=== PATIENT | female | born 1985 | race Caucasian/White ===

== ENCOUNTER 2022-02-08 12:29 | Outpatient (CLI) | payer BC, SELFPAY ==
[2022-02-08 15:22] LABS: Hepatitis B Surface Antigen* Negative (Negative)
[2022-02-08 15:33] LABS: HIV 1/2/P24 Combo Screen* Negative (Negative)
[2022-02-08 15:40] LABS: Hepatitis C Virus Antibody* Negative (Negative)
[2022-02-08 17:42] LABS: TSH With Reflex to FT4* 0.481 uIU/mL (0.270-4.200)
[2022-02-09 22:43] LABS: Rubella Antibody IgG 29.8 IU/mL
[2022-02-10 01:13] LABS: Rapid Plasma Reagin (RPR) Non Reactive (Non Reactive)
== END 2022-02-08 12:30 | disposition home or self-care (01) ==
PROVIDERS: Visit Provider Advanced Practice Midwife
DX: Z34.91 Encounter for supervision of normal pregnancy, unspecified, first trimester (principal); Z13.29 Encounter for screening for other suspected endocrine disorder
CPT/HCPCS: 76817; 84443; 86592; 86703; 86762; 86787; 86803; 86850; 86900; 86901; 87086; 87340

== ENCOUNTER 2022-03-16 09:48 | Outpatient (CLI) | payer BC, SELFPAY | END 2022-03-16 09:49 | disposition home or self-care (01) | LOC: NFLDREF 09:49 | PROVIDERS: Visit Provider Advanced Practice Midwife | DX: N39.0 Urinary tract infection, site not specified (principal) | CPT/HCPCS: 87086 ==

== ENCOUNTER 2022-04-13 16:00 | Outpatient (CLI) | payer BC, SELFPAY ==
[2022-04-16 10:41] LABS: Dating Other; Family Hx Neural Tube Defect No; Insulin Req Maternal Diabetes No; Maternal Age At Delivery 35.9 yr; Maternal Race Nonblack; Maternal Screen Interpretation Screen Neg; Maternal Weight 143.0 lbs.; MoM for AFP 0.94; Number of Fetuses Singleton; Patient's AFP 39 ng/mL; Smoking No
== END 2022-04-13 16:01 | disposition home or self-care (01) ==
LOC: NFLDREF 16:00
PROVIDERS: Visit Provider Advanced Practice Midwife
DX: O09.519 Supervision of elderly primigravida, unspecified trimester (principal)
CPT/HCPCS: 81511

== ENCOUNTER 2022-08-22 09:37 | Outpatient (CLI) | payer BC, SELFPAY | END 2022-08-22 09:38 | disposition home or self-care (01) | LOC: NFLDREF 08-24 05:10 | PROVIDERS: PCP Advanced Practice Midwife; Referring Provider Advanced Practice Midwife; Visit Provider Advanced Practice Midwife | DX: O09.513 Supervision of elderly primigravida, third trimester (principal); Z3A.35 35 weeks gestation of pregnancy | CPT/HCPCS: 87081; 87653 ==

== ENCOUNTER 2022-09-19 11:00 | Outpatient (RCR) | payer BC, SELFPAY | END 2023-01-17 23:59 | disposition home or self-care (01) | PROVIDERS: PCP Advanced Practice Midwife; Visit Provider Advanced Practice Midwife | DX: O09.519 Supervision of elderly primigravida, unspecified trimester (principal); Z51.89 Encounter for other specified aftercare | CPT/HCPCS: 97110; 97112; 97140; 97162 ==

== ENCOUNTER 2022-09-23 04:08 | Inpatient (IN) | payer BC, SELFPAY ==
[2022-09-23] VITALS (16 sets, daily range): BP systolic 107–140; BP diastolic 72–92; PULSE 70–104; RESP 16–18; TEMP 36.8–37.5; O2SAT 97–98; BMI 27.5
[2022-09-23 04:04] LABS: Amnisure Rom* POSITIVE
[2022-09-23] MEDS: MORPHINE 10 MG/ML inj IM (04:32)
[2022-09-23] MEDS: hydrOXYzine pamoate 25 MG CAPSULE 100 MG PO (04:32)
--- NOTE | 2022-09-23 08:30 | W.PM.LDBA ---
Subjective History of Present Illness Time Seen by Provider: 07:30 Date Seen: 09/23/22 Narrative: Patient is being admitted to Labor and Delivery for SROM with clear fluid at 1630 on 09/22/22. She is a 36 year old at 40.3 weeks gestation. Her full history and physical was dictated by Christo Newby CNM on 08/29/22. Please see this for details. After SROM at home her contractions gradually increased in frequency and intensity. The started to get more uncomfortable at home around 0230. She presented the unit around 0330. She was given Morphine and Vistaril for sleep after admission. She was able to sleep for a short while. 1. Advanced Maternal Age, >35 Genetic screening: [id number] ordered-negative Level II US: Unremarkable exam, anterior placenta 2. COVID in , 08/22 at 35 6/7 weeks OB - Problem Based A/P Additional Plan (1) Active labor at term: Status: Acute (2) Pain during labor: Status: Acute (3) AMA (advanced maternal age) primigravida 35+: Status: Acute Plan ASSESSMENT:? at 40.3 weeks gestation? GBS negative? Uncomplicated ? SROM with clear fluid ?? PLAN:? 1. Desires water . Consent signed. Hep C negative.?Water tub occupied. 2. Candidate for analgesia of choice. Planning unmedicated .? 3. Anticipate ? 4. Expectant management at this time.? 5. IV not needed at this time. Consider if condition changes. 6. Intermittent auscultation per unit policy. Delivery/Labor/Induction Plan Plan: expectant management OB Result Labs Blood Type: O (+) positive GBS Status: negative OB Exam Physical Exam Vital signs: Temp Pulse Resp BP 98.6 F 70 18 135/85 09/23/22 08:04 09/23/22 03:32 09/23/22 08:04 09/23/22 03:32 Detailed Labor and Delivery Exam Patient Gravid: Yes Dilation (cm): 4 (4-5 per RN exam) Effacement (%): 60 Contraction Frequency: 3-4 min Fetus (Single) Station: -2 Amniotic Membrane Status: SROM Amniotic Membrane Fluid Description: Clear Heart Rate Baseline: 130 Monitor Accelerations: Present Monitor Decelerations: None Chcf Variability: Moderate (6-25)
[2022-09-23] MEDS: OXYTOCIN 10 UNIT/ML INJ IM (09:05)
--- NOTE | 2022-09-23 09:30 | W.PM.OBVAGDE ---
OB Procedure Vag Delivery Mother Details Mother Details: The patient is a 36 year-old, 1, Para 0, admitted on 09/23/22 at 40.3 Days gestation. Patient was admitted for SROM with clear fluid on 09/22/22 at 1630 and progressed normally. She was found to be 4cm on admission. She had not slept and was having difficulty coping due to the exhaustion so she was offered and accepted Morphine and Vistaril for rest. She was able to sleep for a short while before waking with active contractions. She was found to be 9.5 around 0700. She labored in the tub for a while before getting out to deliver in the bed. She pushed well and delivered in hands and knees position on the bed. SROM noted at 1630 with clear fluid. Patient was complete at 0735 and pushing at 0740. of a viable female at 0859 in hands and knees in the bed. Vertex delivered OBDULIA. No nuchal cord or shoulder. Body delivered easily and without incident. passed through her legs to mothers abdomen with a vigorous cry. Cord was clamped and cut at > 5 minutes. APGARS were 8 at one minute and 9 at five minutes respectively. Mouth was bulb suctioned. Intact placenta with a 3 vessel cord delivered spontaneously at 0905. The placenta was found to have many calcifications and a very thin area at the edge. She did have a covid infection during her . It was sent to pathology for evaluation. Fundus firm. 2nd degree identified and repaired in typical fashion. She was also found to have a cervical prolapse that was easily pushed back into place. QBL 575 cc. Mother and baby stable; mother plans to breastfeed. weight 7lb 3oz.? : 1 Para: 1 Weeks Gestation: 40.3 Admission Date: 09/23/22 Additional Details Amniotic Membrane Status: SROM Amniotic Membrane Rupture Date: 09/22/22 Amniotic Membrane Rupture Time: 16:30 Amniotic Membrane Fluid Description: Clear Analgesia/Anesthesia Type: None Waterbirth: No Pitcoin: Yes (after delivery only) Intrapartal Events: None Labor Onset: 04:30 Complete: 07:35 Pushin:40 Heart: heart tones during second stage were auscultated by doppler in the 130s with increases heard. Delivery Details Delivery Date: 09/23/22 Delivery Time: 08:59 Route of delivery: Infant Gender: Female Infant Viability: Alive; Heart Rate Present Position at Delivery: OA Delivery Details: Delivered over intact perineum via spontaneous vaginal delivery. 1 Minute Interval Total Score: 8 5 Minute Interval Total Score: 9 Additional Details Shoulder Dystocia: No Placental Delivery Description: Spontaneous Delivery repair: Vicryl Procedure Done: Global Blood Loss: 575 Laceration: Perineal - 2nd Degree Episiotomy Description: None Blood Loss Measurement Type: QBL Bakri Used: No Sponge/Need Count Correct: Yes Cord Vessel Description: 3 Vessels Event Summary Status: Mother and infant were stable after delivery. Disposition: floor
[2022-09-23] MEDS: LIDOCAINE 1 % PF 30 ML INJECTION (10:04)
[2022-09-24 01:28] VITALS: BP 98/68; PULSE 72; RESP 16; TEMP 37.1; O2SAT 99
[2022-09-24 04:35] VITALS: BP 95/62; PULSE 75; RESP 18; TEMP 37; O2SAT 100
[2022-09-24 06:31] LABS: Hemoglobin* 11.4 gm/dL (12.0-16.0)
--- NOTE | 2022-09-24 08:44 | P.OBPN_ITS ---
OB - PN:Subj Subjective Date Seen: 09/24/22 Patient comments OB post-: no complaints, pain well controlled, perineal pain, tolerating diet and flatus present O[place]go infant status: [place]go feeding status: exclusively Narrative: Abida is a 36 y.o. who was admitted to L & D for spontaneous onset of labor. ?She had an uncomplicated NVD.?The patient feels well. ?The pain is well con trolled with current medications. ?She has no new complaints. ?She is breast feeding and reports things are going ok, having some nipple tenderness and using nipple shield on the left side.? the patient has done well.? Vitals have been stable.? She has remained afebrile.? Has a good appetite, is tolerating a general diet. ?She is voiding without difficulty.? She is passing gas and has not had a bowel movement.? She is ambulating and denies any dizziness.? Has small amount of rubra lochia. ? OB - PN: Obj Exam Physical Exam: Vital signs: Temp Pulse Resp BP Pulse Ox O2 Del Method 98.6 F 75 18 95/62 100 Room Air 09/24/22 04:35 09/24/22 04:35 09/24/22 04:35 09/24/22 04:35 09/24/22 04:35 09/24/22 04:35 Narrative: GENERAL APPEARANCE:? normal affect, alert, no distress MOOD:? appropriate CHEST:? clear to auscultation HEART:? regular rate and rhythm ABDOMEN:? soft, non-tender the uterine fundus is at Umbilicus, slight right tilt and is appropriate for the stage of recovery. PERINEUM:? mild edema of the perineum, there is a Perineal Laceration,? 2nd degree, that is healing well. EXTREMITIES:? normal and no edema INCISION: Healing well, no surrounding erythema, abnormal induration or discharge OB - PN: Obj Data Labs Labs: Laboratory Results - last 24 hr 09/24/22 06:19 Hgb 11.4 L OB - PN: A/P Delivery Assessment and Plan (1) care and examination immediately after delivery: Status: Acute (2) Lactating mother: Status: Acute (3) AMA (advanced maternal age) primigravida 35+: Status: Acute (4) Second degree laceration of perineum, delivered, current hospitalization: Status: Acute (5) Normal spontaneous vaginal delivery: Status: Acute Plan day: 1 Plan: routine care Comments: Lactating mother. May see today if desired. Anticipate discharge tomorrow, encouraged to stay for continued support.
[2022-09-24 08:45] VITALS: BP 114/77; PULSE 85; RESP 20; TEMP 37.2; O2SAT 100
[2022-09-24] MEDS: DOCUSATE SODIUM 100 MG CAPSULE PO (10:21)
[2022-09-24 16:15] VITALS: BP 117/84; PULSE 89; RESP 16; TEMP 36.6; O2SAT 97
[2022-09-24] MEDS: IBUPROFEN 600 MG TABLET PO (21:42)
[2022-09-25 00:42] VITALS: BP 124/78; PULSE 93; RESP 18; TEMP 37.1; O2SAT 100
--- NOTE | 2022-09-25 07:59 | PM.OBDSVD1 ---
DS: Providers Provider Time Seen by Provider: 07:59 Date Seen: 09/25/22 Date of admission: 09/23/22 04:08 Primary care physician: Keila Wilburn CNM Admitting Clinician: Jennifer Newby CNM Attending Physician on discharge: Jennifer Newby CNM Date of Discharge: 09/25/22 DS: Diagnosis Discharge Diagnosis (1) Normal spontaneous vaginal delivery: Status: Acute (2) Second degree laceration of perineum, delivered, current hospitalization: Status: Acute (3) Lactating mother: Status: Acute (4) care and examination immediately after delivery: Status: Acute Exam Narrative: Exam Narrative: VSS, afebrile GENERAL APPEARANCE: ?normal affect, alert, no distress MOOD: ?appropriate HEENT: normocephalic, neck supple, full ROM CHEST: ?Symmetrical chest wall movement. ?Normal respiratory effort. ?Clear to auscultation HEART: ?regular rate and rhythm ABDOMEN: ?soft, non-tender. Uterine fundus is firm, at Umbilicus, Midline and is appropriate for the stage of recovery. ?Bowel sounds present. PERINEUM: ?mild edema of the perineum, there is a 2nd degree laceration that is healing well. EXTREMITIES: ?normal and no edema Const: Vital Signs, click to edit/add: Vital Signs - 24 hr 09/24/22 08:45 09/24/22 16:15 09/25/22 00:42 Temperature 99 F 97.9 F 98.7 F Pulse Rate [Pulse Oximeter] 85 89 93 Respiratory Rate 20 16 18 Blood Pressure [Le ft Arm] 114/77 117/84 124/78 Pulse Oximetry 100 97 100 Oxygen Delivery Me thod Room Air Room Air Room Air Documenting provider has reviewed patient's vital signs: yes OB - DS: Summary Hospital Course Hospital Course: Abida is a 36 y.o. G 1 P 1 who was admitted to L & D for labor. ?She had an uncomplicated NVD The patient feels well. ?The pain is well controlled with current medications. ?She has no new complaints. ?She is breast feeding and reports things are going well.? the patient has done well.? Vitals have been stable.? She has remained afebrile.? Has a good appetite, is tolerating a general diet. ?She is voiding without difficulty.? She is passing gas and has not had a bowel movement.? She is ambulating and denies any dizziness.? Has Small amount of rubra lochia. She is planning IUD for prevention. Problems: none plan: Discharge home with baby. Follow up in 2 weeks and 6 weeks. , may follow up with if needed Peripartum Data Infant delivery method: Vaginal Laceration description: Perineal - 2nd Degree complications: none Gender: Female Infant Discharge Plan: Home Status at Discharge Functional status at discharge: independent ambulation Overall status at discharge: patient is progressing back to baseline Time Spent with Patient Time attestation: Total time spent providing and/or coordinating discharge services: Time spent: Less than 30 minutes Discharge Plan Discharge Disposition: Home, Self-Care Date of Admission: 09/23/22 04:08 Attending Provider on Discharge: Keila Wilburn Primary Care Provider: Keila Wilburn Condition: Stable Anticipated Discharge Date/Time: 09/25/22 10:00 Discharge Medications: New docusate sodium 100 mg Capsule 100 mg PO BID PRNQty: 100 0RF Rx Instructions: Take 1 cap 1-2 times a day as needed for constipation ibuprofen 600 mg Tablet 600 mg PO Q6H PRNQty: 60 0RF Continued cholecalciferol (vitamin D3) 125 mcg (5,000 unit) capsule 125 mcg PO QDAY omega 7-xha-zca-fish oil [Fish Oil] 60-90-500 mg capsule 1 cap PO QDAY Saccharomyces boulardii [Daily Probiotic (S. boulardii)] 250 mg capsule 5,000 mmu cells PO QDAY prenat.vits,puja,zzk-hhwu-dwoyw Tablet 1 tab PO QDAY Discontinued aspirin [Adult Low Dose Aspirin] 81 mg tablet,delayed release (DR/EC) 81 mg PO QDAY Discharge Orders: Discharge Order (Routine); Ordered 09/25/22 Ordered By: Keila Wilburn Patient Education: OB Over the Counter Medication Information, OB Vaginal/Breast Feeding Additional Instructions: Follow up in 2 weeks and 6 weeks Activity Level: Activity as Tolerated Discharge Diet: Regular Follow Up Appointments: Keila Wilburn CNM [Primary Care Provider] - Forms: [facility] Info Instructions
[2022-09-25 08:15] VITALS: BP 113/77; PULSE 93; RESP 16; TEMP 36.7
[2022-09-25] MEDS: IBUPROFEN 600 MG TABLET PO (09:54)
[2022-09-25] MEDS: DOCUSATE SODIUM 100 MG CAPSULE PO (09:55)
== END 2022-09-25 13:45 | disposition home or self-care (01) | DRG 560 ==
LOC: OB OUT 04:09 → OB 04:09
PROVIDERS: Admitting Provider Advanced Practice Midwife; PCP Advanced Practice Midwife; Visit Provider Advanced Practice Midwife
DX: O70.1 Second degree perineal laceration during delivery (principal); Z37.0 Single live birth
CPT/HCPCS: 36415; 84112; 85018; 88307; A9270; J2001; J2270; J2590

== ENCOUNTER 2022-09-26 12:50 | Outpatient (CLI) | payer BC, SELFPAY ==
--- NOTE | 2022-09-26 16:00 | W.PM.LAC.MC ---
Consult Note - Mom Date of Visit Date of visit: 09/26/22 business objects consultant: Beulah Burroughs Visit Code: Visit Patient's Information Phone number: [phone] : 1 Para: 1 Allergies Sulfa (Sulfonamide Antibiotics) Allergy (Mild, Verified 10/08/22 10:09) Rash Mother's Medical History: Medical History Work Plans: returns to work in about 8 weeks Delivery Information Delivery type: Vaginal Weeks Gestation: 40.3 Gestational Age: AGA Weight: 3.25 kg Discharge Weight: 3.072 kg Baby's Information Baby's Age at Visit: 3 days Baby's Provider or Clinic: Dr. Homa Akins Reason for Consult Reason for Consult: painful, difficult latch; nipple shield; flange fit Past Experience Past Experience: No Current Frequency of Day Feedings: parents try to wake baby every three hours Frequency of Night Feedings: cluster feedign overnight Both Breasts: Yes Suck: strong Latch: fairly wide Length of Time: 5 - 45 minutes total Pumping Pumping: No Supplementing EMB Supplement: No Formula Supplement: No Baby Elimination Number of Wet Diapers a Day: POC aren't sure baby has had a wet diaper since D/C Number of BM a Day: 2 - 3, transitional Breast/Nipple Condition Breast Information: WNL Engorgement: Yes (milk started to come in on 09/25) Maternal Nipple Condition - Left: Common Nipple Maternal Nipple Condition - Right: Common Nipple and Cracking/ Fissures Sore Nipples: Yes Interventions for Sore Nipples: Other (nipple cream, silverettes) Onsite Pre-Feed weight: 3.078 kg Post-Feed weight: 3.116 kg Milk Transferred (mL): 38 Assessments/Interventions Assessments/Interventions: Met with mom and this now 3 day old ex- term AGA baby for consult. Mom reports that was going well initially, but as time progressed baby started having more difficulty. She was D/C'd with a nipple shield which sometimes helps but nursing is still very painful. Mom reports baby is cluster feeding overnight. POC have to work quite hard to wake her during the day, but mom is trying to nurse her every three hours. States feedings have begun to be about 10 - 15 minutes/side since her milk started to come in last night. She hasn't started pumping or giving any EBM. Breasts WNL- symmetrical with rounded lower quadrants, intramammary distance is < 1.5 inches. Nipples are a little large but everted and don't flatten or retract on compression. Right nipple with about a 4 mm abrasion running along the top of the nipple. Mom is using nipple cream and silverettes to help heal it. Left is tender but no breakdown noted. Baby has not begun to gain weight from D/C and today is officially 3054 g (the weight noted above is with a diaper so a pre and post feeding weight could be done). She's 6% below BW at 3 DOL. Per POC she did not have a caput/cephalohematoma, has equal ROM when turning her head and when moving her extremities. Her palate is WNL as is her upper frenulum, she has a very strong suck on a finger. The tongue easily extends past the gum line and has good lateralization. The lower frenulum wasn't visualized, posterior? She's tight in the jaw and does not want to open her mouth very wide. Mom offered her right breast and with verbal coaching to turn baby tummy to tummy and point nipple to nose, mom brought baby quickly to her when she opened wide. Baby took a few suckles then stopped, seemed to loose the latch. Mom made several attempts without success so a nipple shield was applied and baby was able to get a fairly deep latch. She was still in pain but thought it was more d/t the damage and less than to a poor latch. Baby nursed about 15 minutes, not needing much stimulation. Mom was then able to offer the right side without the shield and after a few attempts got baby on quickly. The latch was again fairly deep and mom was comfortable. Baby nursed about 10 minutes, then b/c she was still rooting mom put her back on the right. She transferred 38 ml. Mom was measured and a flange size was suggested, handout given. POC were also shown a gentle jaw massage they can try, suggested they try this before every feeding. Plan: 1. Mom will continue to practice nursing ALD or at least every three hours. Suggested she start with the shield and can take it off a few minutes after the feeding starts. Reviewed if she or baby get frustrated without the shield it's olk to use it, then try without it at the next feeding. 2. Pump/hand express/[place]aa only to comfort if needed after nursing. 3. No medical need to supplement. 4. Gave instructions on salt water rinse for nipples, along with creams that were beneficial, leaving them open to air for a few minutes, siliverettes. 5. Has f/u with PCP on 09/27. Will fax note and f/u by phone on 10/03. Meds Home Medications and Allergies Home Medications Medication Instructions Recorded Confirmed Type prenat.vits,puja,tki-hwmr-phrjc 1 tab PO QDAY 02/08/22 10/08/22 History Saccharomyces boulardii 250 mg 5,000 mmu cells PO QDAY 05/08/22 10/08/22 History capsule (Daily Probiotic (S. boulardii)) cholecalciferol (vitamin D3) 125 125 mcg PO QDAY 05/08/22 10/08/22 History mcg (5,000 unit) capsule omega 0-kso-gni-fish oil 60 mg-90 1 cap PO QDAY 05/08/22 10/08/22 History mg-500 mg capsule (Fish Oil) Allergies Allergy/AdvReac Type Severity Reaction Status Date / Time Sulfa (Sulfonamide Allergy Mild Rash Verified 10/08/22 10:09 Antibiotics)
== END 2022-09-26 12:51 | disposition home or self-care (01) ==
LOC: OB LAC 12:52
PROVIDERS: Visit Provider Advanced Practice Midwife
DX: Z39.1 Encounter for care and examination of lactating mother (principal)
CPT/HCPCS: 99211